=== PATIENT | female | born 1990 | race Caucasian/White ===

== ENCOUNTER → 2017-01-24 10:10 | Emergency (ER) | payer OTHER ==
[~2017-01-24 10:10] MED LIST: Aspirin Low Dose CHEW TAB* 81 MG ONE; Heparin for STEMI(*) 5,000 UNITS/ML 1 ML VIAL IV ONE; NS 0.9% 1000 ML* 1,000 ML IV ONE; Nitroglycerin TAB 0.4 MG* 0.4 MG TAB ONE; Ticagrelor* 90 MG TAB PO ONE; cefTRIAXone(*) 1 GM in NS 0.9% 50 ML* 50 ML IVPB ONE; nitroGLYCERIN DRIP* 0 ML ONE
[2017-01-24 11:09] LABS: Hematocrit 40 % (35-47); Hemoglobin 13.3 g/dl (12.0-16.0); Mean Corpuscular HGB Conc 34 g/dl (31-36); Mean Corpuscular Hemoglobin 29 pg (27-31); Mean Corpuscular Volume 88 fL (80-97); Mean Platelet Volume 8 um3 (7.4-10.4); Red Blood Count 4.53 10^6/ul (4.0-5.4); Red Cell Distribution Width 13 % (10.5-15); White Blood Count 9.8 10^3/ul (3.5-10.8)
[2017-01-24 11:16] LABS: Urine Bacteria Absent (Absent); Urine Bilirubin Negative (Negative); Urine Glucose Negative (Negative); Urine Nitrite Negative (Negative)
[2017-01-24 11:33] LABS: ALT 11 U/L (7-52); AST 13 U/L (13-39); Albumin 4.1 g/dL (3.2-5.2); Alkaline Phosphatase 49 U/L (34-104); Anion Gap 7 mmol/L (2-11); BUN/Creatinine Ratio 15.9 (8-20); Blood Urea Nitrogen 14 mg/dL (6-24); C Reactive Protein 2.44 mg/L (< 5.00); CO2 Carbon Dioxide 27 mmol/L (22-32); Calcium 9.3 mg/dL (8.6-10.3); Chloride 103 mmol/L (101-111); EGFR African American 98.4 (>60); EGFR Non-African American 76.5 (>60); Globulin 2.9 g/dL (2-4); Glucose 93 mg/dL (70-100); Lipase 17 U/L (11.0-82.0); Potassium 3.8 mmol/L (3.5-5.0); Sodium 137 mmol/L (133-145)
--- NOTE | 2017-01-24 11:42 | RAD ---
Indication: 1 month LEFT flank pain. History of LEFT ureteropelvic junction surgery in 2012. Comparison: No relevant prior exams available on the [facility] for comparison. Technique: Renal ultrasound. Report: 13.4 x 6.2 x 5.5 cm RIGHT kidney demonstrates normal cortical echogenicity and absence of conspicuous stones, hydronephrosis, or focal lesions. Negative for perinephric fluid. 10.7 x 5.1 x 3.2 cm LEFT kidney with normal cortical echogenicity is remarkable for moderate pelvicaliectasis. No conspicuous stones or focal renal lesions. Limited images of the urinary bladder documented grossly symmetric ureteral jets. IMPRESSION: Nonspecific moderate pelvic caliectasis of the LEFT kidney in setting of known prior ureteropelvic junction stenosis. The ureteral jets appear grossly symmetric.
[2017-01-24 13:22] VITALS: BP 118/88
[2017-01-24 13:30] LABS: Urine Bacteria Absent (Absent); Urine Bilirubin Negative (Negative); Urine Glucose Negative (Negative); Urine Nitrite Negative (Negative)
--- NOTE | 2017-01-24 17:31 | ED ---
Fili Emerson SooYoung, scribed for João Reich MD on 01/24/17 at 1038 . Abdominal Pain/Female - HPI Summary HPI Summary: A 26 y/o F presents to ED with c/o intermittent pain at L-kidney initial onset 1 month ago. Pert PMHx: L kidney surgery in 2011 performed at [facility]. Pain is described as a "pinch" and radiates around the L side and to L-side of back, and was shooting down to suprapubic abd but that has since resolved. The pain worsened three days ago and was very painful last night. At its worst, pt rated the pain as 4 out of 10. It is currently 2 out of 10 at bedside. She took 3 Ibuprofen approx 1 hour ago. Associated sx: nausea, vaginal discomfort described as achy, urinary frequency. Denies fever, vomiting. She saw her PCP two weeks ago and was negative for UTI. She is scheduled for an U/S tomorrow. Pert PMHx: kidney surgery, UTI, yeast infections. She notes that she's on BC, but her last menstrual cycle lasted three week. Denies PMHx kidney stones. - History of Current Complaint Chief Complaint: EDAbdPain Stated Complaint: LT SIDE/LOWER BACK PAIN Time Seen by Provider: 01/24/17 10:15 Hx Obtained From: Patient, Medical Records Onset/Duration: Lasting Days, Lasting Weeks, Still Present Timing: Intermittent Episode Lasting Severity Initially: Moderate Severity Currently: Mild Pain Intensity: 2 Pain Scale Used: 0-10 Numeric Location: Discrete At: LUQ, Discrete At: LLQ Radiates: Yes Radiates to: Back, Flank, Other - suprapubic abd Character: Other: - "pinch" Associated Signs and Symptoms: Positive: Urinary Symptoms - frequency, Nausea, Other: - pos: vaginal discomfort. 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 Negative: Vomiting Positive: frequency, pain - vaginal discomfort All Other Systems Reviewed And Are Negative: Yes Physical Exam - Summary Physical Exam Summary: VITAL SIGNS: Reviewed. GENERAL: Patient is a well-developed and nourished female who is lying comfortable in the stretcher. Patient is not in any acute respiratory distress. HEAD AND FACE: Normocephalic and atraumatic. EYES: PERRLA, EOMI x 2, No injected conjunctiva. EARS: Hearing grossly intact. Ear canals and tympanic membranes are WNL. MOUTH: Oropharynx within normal limits. NECK: Supple, trachea is midline, no adenopathy, no JVD. CHEST: Symmetric, no tenderness at palpation LUNGS: Clear to auscultation bilaterally. No wheezing or crackles. CVS: RRR, S1 and S2 present, no murmurs or gallops appreciated. ABDOMEN: L CVA tenderness. L flank tenderness. No signs of distention. Positive bowel sounds. No rebound, no guarding, and no masses palpated. No abdominal bruit or pulsations. EXTREMITIES: FROM in all major joints, no edema, no cyanosis or clubbing. NEURO: Alert and oriented x 3. No acute neurological deficits. Speech is normal. SKIN: Dry and warm Triage Information Reviewed: Yes Vital Signs On Initial Exam: Initial Vitals Temp Pulse Resp BP Pulse Ox 98.3 F 85 15 126/88 100 01/24/17 10:13 01/24/17 10:13 01/24/17 10:13 01/24/17 10:13 01/24/17 10:13 Vital Signs Reviewed: Yes Diagnostics - Vital Signs Vital Signs Temp Pulse Resp BP Pulse Ox 01/24/17 10:13 98.3 F 85 15 126/88 100 - Laboratory Lab Results: Lab Results 01/24/17 01/24/17 01/24/17 Range/Units 10:57 10:57 10:57 WBC 9.8 (3.5-10.8) 10^3/ul RBC 4.53 (4.0-5.4) 10^6/ul Hgb 13.3 (12.0-16.0) g/dl Hct 40 (35-47) % MCV 88 (80-97) fL MCH 29 (27-31) pg MCHC 34 (31-36) g/dl RDW 13 (10.5-15) % Plt Count 255 (150-450) 10^3/ul MPV 8 (7.4-10.4) um3 Neut % (Auto) 78.7 (38-83) % Lymph % (Auto) 12.7 L (25-47) % Bulloch % (Auto) 6.3 (1-9) % Eos % (Auto) 1.6 (0-6) % Baso % (Auto) 0.7 (0-2) % Absolute Neuts (auto) 7.7 (1.5-7.7) 10^3/ul Absolute Lymphs (auto) 1.2 (1.0-4.8) 10^3/ul Absolute Monos (auto) 0.6 (0-0.8) 10^3/ul Absolute Eos (auto) 0.2 (0-0.6) 10^3/ul Absolute Basos (auto) 0.1 (0-0.2) 10^3/ul Absolute Nucleated RBC 0 10^3/ul Nucleated RBC % 0 Sodium 137 (133-145) mmol/L Potassium 3.8 (3.5-5.0) mmol/L Chloride 103 (101-111) mmol/L Carbon Dioxide 27 (22-32) mmol/L Anion Gap 7 (2-11) mmol/L BUN 14 (6-24) mg/dL Creatinine 0.88 (0.51-0.95) mg/dL Est GFR ( Amer) 98.4 (>60) Est GFR (Non-Af Amer) 76.5 (>60) BUN/Creatinine Ratio 15.9 (8-20) Glucose 93 (70-100) mg/dL Calcium 9.3 (8.6-10.3) mg/dL Total Bilirubin 0.70 (0.2-1.0) mg/dL AST 13 (13-39) U/L ALT 11 (7-52) U/L Alkaline Phosphatase 49 (34-104) U/L C-Reactive Protein 2.44 (< 5.00) mg/L Total Protein 7.0 (6.4-8.9) g/dL Albumin 4.1 (3.2-5.2) g/dL Globulin 2.9 (2-4) g/dL Albumin/Globulin Ratio 1.4 (1-3) Lipase 17 (11.0-82.0) U/L Beta HCG, Quant < 0.60 mIU/mL Urine Color Sherie Urine Appearance Turbid Urine pH 6.0 (5-9) Ur Specific [place] 1.016 (1.010-1.030) Urine Protein 3+(>=500 mg/dl) H (Negative) Urine Ketones Negative (Negative) Urine Blood 2+ H (Negative) Urine Nitrate Negative (Negative) Urine Bilirubin Negative (Negative) Urine Urobilinogen Negative (Negative) Ur Leukocyte Esterase 3+ H (Negative) Urine WBC (Auto) 3+(>20/hpf) H (Absent) Urine RBC (Auto) 3+(>10/hpf) H (Absent) Ur Squamous Epith Cells Present H (Absent) Urine Bacteria Absent (Absent) Urine Glucose Negative (Negative) 01/24/17 Range/Units 13:15 WBC (3.5-10.8) 10^3/ul RBC (4.0-5.4) 10^6/ul Hgb (12.0-16.0) g/dl Hct (35-47) % MCV (80-97) fL MCH (27-31) pg MCHC (31-36) g/dl RDW (10.5-15) % Plt Count (150-450) 10^3/ul MPV (7.4-10.4) um3 Neut % (Auto) (38-83) % Lymph % (Auto) (25-47) % Bulloch % (Auto) (1-9) % Eos % (Auto) (0-6) % Baso % (Auto) (0-2) % Absolute Neuts (auto) (1.5-7.7) 10^3/ul Absolute Lymphs (auto) (1.0-4.8) 10^3/ul Absolute Monos (auto) (0-0.8) 10^3/ul Absolute Eos (auto) (0-0.6) 10^3/ul Absolute Basos (auto) (0-0.2) 10^3/ul Absolute Nucleated RBC 10^3/ul Nucleated RBC % Sodium (133-145) mmol/L Potassium (3.5-5.0) mmol/L Chloride (101-111) mmol/L Carbon Dioxide (22-32) mmol/L Anion Gap (2-11) mmol/L BUN (6-24) mg/dL Creatinine (0.51-0.95) mg/dL Est GFR ( Amer) (>60) Est GFR (Non-Af Amer) (>60) BUN/Creatinine Ratio (8-20) Glucose (70-100) mg/dL Calcium (8.6-10.3) mg/dL Total Bilirubin (0.2-1.0) mg/dL AST (13-39) U/L ALT (7-52) U/L Alkaline Phosphatase (34-104) U/L C-Reactive Protein (< 5.00) mg/L Total Protein (6.4-8.9) g/dL Albumin (3.2-5.2) g/dL Globulin (2-4) g/dL Albumin/Globulin Ratio (1-3) Lipase (11.0-82.0) U/L Beta HCG, Quant mIU/mL Urine Color Yellow Urine Appearance Turbid Urine pH 6.0 (5-9) Ur Specific [place] 1.006 L (1.010-1.030) Urine Protein 2+(100 mg/dl) H (Negative) Urine Ketones Negative (Negative) Urine Blood 2+ H (Negative) Urine Nitrate Negative (Negative) Urine Bilirubin Negative (Negative) Urine Urobilinogen Negative (Negative) Ur Leukocyte Esterase 3+ H (Negative) Urine WBC (Auto) 3+(>20/hpf) H (Absent) Urine RBC (Auto) 3+(>10/hpf) H (Absent) Ur Squamous Epith Cells Present H (Absent) Urine Bacteria Absent (Absent) Urine Glucose Negative (Negative) Result Diagrams: 01/24/17 10:57 01/24/17 10:57 Lab Statement: Any lab studies that have been ordered have been reviewed, and results considered in the medical decision making process. - Ultrasound No standard instances Ultrasound Interpretation: Positive (See Comments) - IMPRESSION: Nonspecific moderate pelvic caliectasis of the LEFT kidney in setting of known prior ureteropelvic junction stenosis. The ureteral jets appear grossly symmetric. ED physician has reviewed this radiology report and agrees. Ultrasound Interpretation Completed By: Radiologist - EKG 10:58 Cardiac Rate: NL - 72 bpm EKG Rhythm: Sinus Rhythm ST Segment: Normal - no ST elevation Re-Evaluation - Re-Evaluation 1 Re-Evaluation Time: 12:29 Change: Improved Comment: Discussing results with pt. Pt is feeling better. 2 Re-Evaluation Time: 13:54 Change: Improved Comment: Discussing results with pt. Pt is without pain. Will consult with urology for disposition. Abdominal Pain Fem Course/Dx - Course Course Of Treatment: A 26 y/o F presents to ED with c/o intermittent pain at L- kidney initial onset 1 month ago. Pert PMHx: L kidney surgery in 2011 performed at [facility]. Pain is described as a "pinch" and radiates around the L side and to L-side of back, and was shooting down to suprapubic abd but that has since resolved. The pain worsened three days ago and was very painful last night. At its worst, pt rated the pain as 4 out of 10. It is currently 2 out of 10 at bedside. She took 3 Ibuprofen approx 1 hour ago. Associated sx: nausea, vaginal discomfort described as achy, urinary frequency. Denies fever, vomiting. She saw her PCP two weeks ago and was negative for UTI. She is scheduled for an U/S tomorrow. Pert PMHx: kidney surgery, UTI, yeast infections. She notes that she's on BC, but her last menstrual cycle lasted three week. Denies PMHx kidney stones. Test results are without significant abnormalities. UAx2 was contaminated. U/S shows "Nonspecific moderate pelvic caliectasis of the LEFT kidney in setting of known prior ureteropelvic junction stenosis. The ureteral jets appear grossly symmetric. ED physician has reviewed this radiology report and agrees." I discussed the findings with Dr. Leigh, urology, who recommends pt be given Rocephin and D/C home with Bactrim , for possible UTI vs pyelonpehritis. D/C home to f/u with PCP and if needed Dr. Leigh. I discussed this plan with the pt and she agrees. She is to return to ED, if she develops fever, increase in pain, nausea/vomiting, or any other symptoms. Pt is hemodynamically stable, A&Ox3. - Diagnoses Differential Diagnosis: Positive: Ovarian Cyst, Renal Colic, Urinary Tract Infection Provider Diagnoses: Flank pain, rule out UTI vs pyelonephritis - Provider Notifications Discussed Care Of Patient With: Rudy Leigh - urology Time Discussed With Above Provider: 14:02 Instructed by Provider To: Other - Recommends Rocephin, Bactrim follow up with PCP. Discharge - Discharge Plan Condition: Stable Disposition: HOME Prescriptions: Sulfamethox/Trimethoprim DS* [Bactrim DS 800/160 TAB*] 1 tab PO BID #20 tab Patient Education Materials: Sulfamethoxazole/Trimethoprim (By mouth), Flank Pain (ED) Referrals: Gabbie Duran DO [Primary Care Provider] - 2 Days Additional Instructions: Follow up with your primary care provider in 2 days. Please return to the ED if you experience new or worsening symptoms. The documentation as recorded by the Fili grullon SooYoung accurately reflects the service I personally performed and the decisions made by , João Reich MD.
--- NOTE | 2017-01-26 09:04 | PN ---
Progress Note - Progress Note Date of Service: 01/24/17 Note: urine preliminary results show >100,000 of e. coli. diagnosed and treated for UTI with Bactrim. will wait for final susceptibility results.
== END | disposition home or self-care (01) ==
LOC: ED 10:10
DX: R10.32 Left lower quadrant pain (principal); N39.0 Urinary tract infection, site not specified; B96.20 Unspecified Escherichia coli [E. coli] as the cause of diseases classified elsewhere
CPT/HCPCS: 36415; 76775; 80053; 81003; 81015; 83690; 84702; 85025; 86140; 87077; 87086; 87184; 87186; 93005; 96360; 96374; 99282; A9270-GY; J0696; J1644

== ENCOUNTER 2017-06-08 21:43 | Emergency (ER) | payer OTHER ==
[2017-06-08] MEDS ORDERED: Lidocaine 1%* 5 ML VIAL INJ ONE (22:05)
--- NOTE | 2017-06-08 22:10 | ED ---
Skin Complaint - HPI Summary HPI Summary: 27F presents with splinter in left ring finger. She states she was doing laundry when pushed hand against ground and got splinter under her finger. She believes her tetanus is up-to-date. She has full range of motion of hand. She has tried warm soaks and tried removing it with tweezer and it broke into pieces. She denies any fever. She denies any spreading redness. She got the splinter today. She is right-handed. - History of Current Complaint Chief Complaint: EDExtremityLower Time Seen by Provider: 06/08/17 22:03 Stated Complaint: SPLINTER UNDER FINGER NAIL Pain Intensity: 5 - Allergy/Home Medications Allergies/Adverse Reactions: Allergies Allergy/AdvReac Type Severity Reaction Status Date / Time No Known Allergies Allergy Verified 06/08/17 21:50 PMH/Surg Hx/FS Hx/Imm Hx Endocrine/Hematology History: Denies: Hx Anticoagulant Therapy Cardiovascular History: Denies: Hx Hypertension History: Denies: Hx Kidney Stones Sensory History: Denies: Hx Legally Blind Opthamlomology History: Denies: Hx Legally Blind - Surgical History Surgery Procedure, Year, and Place: L kidney surgery, 2012, [facility] Infectious Disease History: No Infectious Disease History: Denies: Traveled Outside the [place] in Last 30 Days - Family History Known Family History: Negative: Diabetes - Social History Alcohol Use: Rare Substance Use Type: Reports: None Smoking Status (MU): Unknown if Ever Smoked Review of Systems Negative: Fever Negative: Chest Pain Negative: Shortness Of Breath Positive: Other - splinter under left ring finger All Other Systems Reviewed And Are Negative: Yes Physical Exam Triage Information Reviewed: Yes Vital Signs On Initial Exam: Initial Vitals Temp Pulse Resp BP Pulse Ox 98.6 F 66 16 120/91 100 06/08/17 21:45 06/08/17 21:45 06/08/17 21:45 06/08/17 21:45 06/08/17 21:45 Vital Signs Reviewed: Yes Appearance: Positive: Well-Appearing Skin: Positive: Warm, Dry, Other - splinter under left ring finger Head/Face: Positive: Normal Head/Face Inspection Eyes: Positive: Normal, Conjunctiva Clear Respiratory/Lung Sounds: Positive: Clear to Auscultation, Breath Sounds Present Cardiovascular: Positive: Normal, RRR Musculoskeletal: Positive: Normal, Strength/ROM Intact - left hand, Other - capillary refill<2 secs Neurological: Positive: Normal Psychiatric: Positive: Normal Procedures - Procedure Summary Procedure Summary: splinter removal performed digital block placed window in nail removed splinter from window created placed neosporin and bandaide on area Diagnostics - Vital Signs Vital Signs Temp Pulse Resp BP Pulse Ox 06/08/17 21:45 98.6 F 66 16 120/91 100 - Laboratory Lab Statement: Any lab studies that have been ordered have been reviewed, and results considered in the medical decision making process. Course/Dx - Course Course Of Treatment: 27F presents with splinter in left ring finger. She states she was doing laundry when pushed hand against ground and got splinter under her finger. She believes her tetanus is up-to-date. She has full range of motion of hand. She has tried warm soaks and tried removing it with tweezer and it broke into pieces. She denies any fever. She denies any spreading redness. She got the splinter today. She is right-handed. On exam has splinter under her left ring finger. Attempted removal by creating window in the nail. was able to remove splinter. will have continue warm soaks and keep nail covered. patient understand and agrees with plan. - Differential Diagnoses - Skin Complaint Differential Diagnoses: Other - foreign body, puncture wound - Diagnoses Provider Diagnoses: splinter left ring finger Discharge - Discharge Plan Condition: Good Disposition: HOME Patient Education Materials: Soft Tissue Foreign Body (ED) Referrals: Gabbie Duran DO [Primary Care Provider] - Additional Instructions: Do warm soaks of area twice a day Keep covered for next couple days Take Tylenol or ibuprofen for pain every 6 hours Return to ED if develop any new or worsening symptoms
[2017-06-08] MEDS ORDERED: Ibuprofen TAB* 600 MG PO ONE (22:35)
[2017-06-08] MEDS ORDERED: Ibuprofen TAB* 600 MG ONE (22:36)
[2017-06-08 22:57] VITALS: BP 123/75
== END 2017-06-08 22:56 | disposition home or self-care (01) ==
LOC: ED 21:43
DX: S60.455A Superficial foreign body of left ring finger, initial encounter (principal); W45.8XXA Other foreign body or object entering through skin, initial encounter; Y92.9 Unspecified place or not applicable
CPT/HCPCS: 99282; A9270-GY

== ENCOUNTER 2019-05-21 16:04 | Emergency (ER) | payer OTHER ==
--- NOTE | 2019-05-21 17:49 | ED ---
Head Injury - HPI Summary HPI Summary: 28 year old female presents with head injury last night. She struck her head on a beam when she jumped up. There was an laceration which she manage by placed ice on it. She states that it bleeding fo 2 hours. The area is currently scabbed over. She states that she has had some dizziness nausea. She admits to light-sensitive. States has had a mild headache. She has a history of migraines. Denies any midline neck. She has neck pain to the right side. She denies loss consciousness. No vomiting. She is not on blood thinners. 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 - History Of Current Complaint Chief Complaint: EDHeadInjury Stated Complaint: HEAD INJURY PER PT Time Seen by Provider: 05/21/19 17:21 Pain Intensity: 2 - Allergies/Home Medications Allergies/Adverse Reactions: Allergies Allergy/AdvReac Type Severity Reaction Status Date / Time No Known Allergies Allergy Verified 05/21/19 16:27 PMH/Surg Hx/FS Hx/Imm Hx Endocrine/Hematology History: Denies: Hx Anticoagulant Therapy Cardiovascular History: Denies: Hx Hypertension Respiratory History: Denies: Hx Asthma History: Denies: Hx Kidney Stones Sensory History: Denies: Hx Legally Blind Opthamlomology History: Denies: Hx Legally Blind - Surgical History Surgery Procedure, Year, and Place: L kidney surgery, 2012, [facility] Infectious Disease History: No Infectious Disease History: Denies: Traveled Outside the [place] in Last 30 Days - Family History Known Family History: Negative: Diabetes - Social History Alcohol Use: Rare Substance Use Type: Reports: None Smoking Status (MU): Never Smoked Tobacco Review of Systems Negative: Fever Negative: Chest Pain Negative: Shortness Of Breath Positive: Nausea. Negative: Vomiting Positive: Headache All Other Systems Reviewed And Are Negative: Yes Physical Exam Triage Information Reviewed: Yes Vital Signs On Initial Exam: Initial Vitals Temp Pulse Resp BP Pulse Ox 98.2 F 85 19 140/88 99 05/21/19 16:23 05/21/19 16:23 05/21/19 16:23 05/21/19 16:23 05/21/19 16:23 Vital Signs Reviewed: Yes Appearance: Positive: Well-Appearing Skin: Positive: Other - scabbed over laceration Head/Face: Positive: Normal Head/Face Inspection, Other - no step off, racoon eyes, rasmussen sign Eyes: Positive: Normal, EOMI, ARPIT, Conjunctiva Clear ENT: Positive: Pharynx normal, TMs normal Neck: Positive: Other: - no midline tenderness, full ROM neck, tenderness on right side of neck Respiratory/Lung Sounds: Positive: Clear to Auscultation, Breath Sounds Present Cardiovascular: Positive: Normal, RRR Musculoskeletal: Positive: Normal Neurological: Positive: Sensory/Motor Intact, Alert, Oriented to Person Place, Time, CN Intact II-III, Finger to Nose Psychiatric: Positive: Normal Procedures - Sedation Patient Received Moderate/Deep Sedation with Procedure: No Diagnostics - Vital Signs Vital Signs Temp Pulse Resp BP Pulse Ox 05/21/19 16:23 98.2 F 85 19 140/88 99 - Laboratory Lab Statement: Any lab studies that have been ordered have been reviewed, and results considered in the medical decision making process. Head Injury Course/Dx Course Of Treatment: 28 year old female presents with head injury last night. She struck her head on a beam when she jumped up. There was an laceration which she manage by placed ice on it. She states that it bleeding fo 2 hours. The area is currently scabbed over. She states that she has had some dizziness nausea. She admits to light-sensitive. States has had a mild headache. She has a history of migraines. Denies any midline neck. She has neck pain to the right side. She denies loss consciousness. No vomiting. She is not on blood thinners. 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 On exam has normal neuro exam. According to [place] rules no need for head imaging. Gave her head injury precautions. toold follow with primary. Laceration is too old to close. Told to keep laceration clean and dry. Patient understands and agrees plan. - Diagnoses Differential Diagnosis/HQI/PQRI: Concussion Without LOC, Contusion, Intracranial Bleed Provider Diagnoses: Head injury Discharge ED - Sign-Out/Discharge Documenting (check all that apply): Patient Departure - Discharge Plan Condition: Good Disposition: HOME Patient Education Materials: Concussion (ED) Referrals: [facility] [Outside] Additional Instructions: Place ice on area as needed Take Tylenol or ibuprofen for headache every 6 hours Modify activities as tolerated establish care with primary to follow up Return to ED if develop vomiting, severe headache, change in behavior, or any new or worsening symptoms - Billing Disposition and Condition Condition: GOOD Disposition: Home - Attestation Statements Provider Attestation: I was available for consultation for this patient. I did not evaluate the patient or participate in any medical decision making or disposition decisions unless I am specifically named in the chart as having consulted on the patient. If I have consulted on the patient, please see my own ED note on the patient encounter. Eve Swartz MD
[2019-05-21 17:58] VITALS: BP 112/67
== END 2019-05-21 17:58 | disposition home or self-care (01) ==
LOC: ED 16:04
DX: S09.90XA Unspecified injury of head, initial encounter (principal); W22.8XXA Striking against or struck by other objects, initial encounter; Y92.9 Unspecified place or not applicable
CPT/HCPCS: 99281

== ENCOUNTER 2019-06-16 18:57 | Emergency (ER) | payer SELFPAY ==
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
[2019-06-16 20:24] LABS: Hematocrit 37 % (35-47); Hemoglobin 12.9 g/dL (12.0-16.0); Mean Corpuscular HGB Conc 35 g/dL (31-36); Mean Corpuscular Hemoglobin 31 pg (27-31); Mean Corpuscular Volume 89 fL (80-97); Mean Platelet Volume 7.4 fL (7.4-10.4); Platelet Count 279 10^3/uL (150-450); Red Blood Count 4.15 10^6 /uL (3.70-4.87); Red Cell Distribution Width 13 % (10-15); White Blood Count 8.5 10^3/uL (3.5-10.8)
[2019-06-16] MEDS ORDERED: Ketorolac *IM* INJ* 60 MG/2 ML VIAL IM ONE (20:38)
--- OUTSIDE RECORDS SUMMARY | 2019-06-16 20:38 | XMS REPORT | Summary of Care ---
:1990 Author Organization [facility] Address [address] [place] [address] Care Team Providers Name Role Phone Sarath Ulrich MD Primary Care Provider Reason for Referral Refer to Department Only (Routine) Status Reason Specialty Diagnoses / Referred By Referred To Procedures Contact Contact Pending Patient Diagnoses Concussion without loss of consciousness, subsequent encounter Юлия Ro Getzin, Andrew, Review Preference CARD FOLDERSimona ODONNELL [address] [place] [address] [place], [place] Phone: [phone] Phone: Reason for Visit Reason Comments Establish Care was seen at [facility] for a concusstion wants to establish with Dr Castellon Encounter Details Date Type Department Care Team Description 05/29/2019 Office Visit [facility] Юлия Ro FNP-C Hypothyroidism, unspecified type (Primary Dx); Practice [address] [facility] Concussion without loss of consciousness, subsequent encounter; [address] [place] [address] Allergic state, sequela; [place] [address] Mild intermittent asthma without complication [phone] Allergies No Known Allergiesdocumented as of this encounter (statuses as of 05/29/2019) Medications Medication Sig Dispensed Refills Start Date End Date Status Drospirenone-Ethin Take by mouth. 0 Active yl Estradiol (GIANVI PO) ALBUTEROL IN Take 2 Puffs by 0 Active inhalation EVERY FOUR HOURS. montelukast Take 10 mg by 0 Active (SINGULAIR) 10 MG mouth DAILY. Oral Tab Loratadine 10 MG Take 10 mg by 0 Active Oral Cap mouth DAILY. levothyroxine Take 200 mcg by 0 Active (SYNTHROID) 200 mouth BEFORE MCG Oral Tab BREAKFAST. On Wednesday and Wednesday levothyroxine Take 175 mcg by 0 Active (SYNTHROID) 175 mouth BEFORE MCG Oral Tab BREAKFAST. Mon-Wed amoxicillin-clavul Take 1 Tab by 0 05/29/19 Discontinued anic acid mouth TWICE 20 (AUGMENTIN 875 MG) DAILY. 875-125 MG Oral Tab Etonogestrel-Ethin Place 1 Device 0 05/29/19 Discontinued yl Estradiol into the vagina 20 (Patient stopped (NUVARING) EVERY 28 DAYS. the medication) 0.12-0.015 MG/24HR Vaginal RING documented as of this encounter (statuses as of 05/29/2019) Active Problems Problem Noted Date Mild intermittent asthma without complication 05/29/2019 Hypothyroidism 05/29/2019 Concussion with no loss of consciousness 05/29/2019 Hyperthyroidism 04/07/2010 documented as of this encounter (statuses as of 05/29/2019) Social History Tobacco Use Types Packs/Day Years Used Date Never Smoker Alcohol Use Drinks/Week oz/Week Comments Yes occasionally Alcohol Habits Answer Date Recorded How often do you have a drink containing alcohol? 2-4 times a month 2019 How many drinks containing alcohol do you have on a Not asked typical day when you are drinking? How often do you have six or more drinks on one Not asked occasion? Sex Assigned at Date Recorded Not on file documented as of this encounter Last Filed Vital Signs Vital Sign Reading Time Taken Comments Blood Pressure 100/60 05/29/2019 8:22 AM EST Pulse 50 05/29/2019 8:22 AM EST Temperature 36.7 05/29/2019 8:22 AM EST C (98 F) Respiratory Rate - - Oxygen Saturation 99% 05/29/2019 8:22 AM EST Inhaled Oxygen Concentration - - Weight 65.8 kg (145 lb) 05/29/2019 8:22 AM EST Height 182.9 cm (6') 05/29/2019 8:22 AM EST Body Mass Index 19.67 05/29/2019 8:22 AM EST documented in this encounter Patient Instructions Patient InstructionsЮлия Ro FNP-C - 05/29/2019 8:00 AM ESTPatient Education Concussion Discharge Instructions, Adult About this topic Concussion is a brain injury caused by a hit to the head. Anything that makes the brain bounce around and against the skull can cause a concussion. This might include falling, sports injuries, car crashes, or a hit to the head. Some signs of a concussion may show up right away or they could show up several hours, days, or evenweeks later. You may have been knocked out at the time of the injury. Other signs may include: Headache Upset stomach or throwing up Feeling tired or have trouble sleeping Trouble walking or talking Problems with feeling confused or not able to remember what happened Trouble paying attention Feeling cranky or out of sorts or other mood or behavior problems Changes in vision Feeling bothered by noise or light Signs may disappear quickly or may linger for several days, weeks, or even months. What care is needed at home? Ask your doctor what you need to do when you go home. Make sure you ask questions if you do notunderstand what you need to do. Healing may take days to weeks. For the first 12 to 24 hours after you are home, have an adult watch you. They should call the doctor if you have any problems. It is important to make sure you are breathing normally, not throwing up, and not moaning while you sleep. Make sure family and friends know of your injury and how to help. You do not need to stay in bed. Alternate rest with light activity like walking. Rest your brain. Stay away from doing things that need a lot of thought or focus. Stay away from TV, computers, and video games until your doctor says OK. Stay in a quiet, calm environment. Avoid bright lights. Staying in a dark room may help. Avoid loud or constant noise. Be as comfortable as possible. Place an ice pack or a bag of frozen peas wrapped in a towel over the painful part. Never put ice straight on the skin. Do not leave the ice on more than 10 to 15 minutes at a time. Take your pain-relieving drugs if your head hurts. Do not drink beer, wine, and mixed drinks (alcohol) until you fully recover. Do not use recreational drugs like cocaine, methamphetamines, or heroin. What follow-up care is needed? Your doctor may ask you to make visits to the office to check on your progress. Be sure to keepyour visits. Your doctor may do tests, such as a CT scan, MRI, or x-rays. These tests will check to see if other structures inside your head were harmed. Your doctor may send you to a rehab expert. They may be able to help you to get your brain function back and help you to recover faster. What drugs may be needed? The doctor may order drugs to: Help with pain Help with dizziness Treat or prevent seizures Will physical activity be limited? Physical activity may be limited for some time. Doing things that require thinking or memory might also be limited. Check with your doctor about when you can go back to your normal activities. These may be limited as long as you have the signs of a concussion. You should be able to do light activities like reading and walking. Slowly add to your activities. Avoid tiring activities, heavy exercise, and swimming. Ask your doctor when it is okay for you to drive. When you go back to work, talk to your employer about your job. You may need some limits on what you do. You may need to have someone check your work every now and then. Make sure teachers know ofyour problem if you are in school. Avoid doing things that may put you at risk of another head injury. Ask your doctor when it will be safe for you to return to playing sports. What problems could happen? Bleeding or swelling in the brain Damage to the brain which may lead to changes in mental, physical, and emotional behavior Seizures Low mood Hearing, smelling, or eye problems Memory loss Dizziness Headaches If you get a new concussion while not yet fully recovered from the first one, you might have brain swelling which could be dangerous. Multiple concussions can lead to permanent brain damage and even . What can be done to prevent this health problem? Do not drive when you are taking drugs for pain or that cause you to be sleepy. Do not drink alcohol and drive. Do not drive when you are tired. Always wear a seatbelt when you drive or ride in a car. Wear proper protective equipment when you play sports. Wear a helmet when riding a motorcycle, bicycle, skateboard, roller skates , or when skiing or snowboarding or doing other similar activity. Stay away from unsafe activities that may cause falls. Wear hard hats and protective gear if you work in construction or other dangerous jobs or if you work on ladders or in high places. When do I need to call the doctor? Problems with your brain like: More confusion, drowsiness, or any change in ability to think clearly Not being able to remember things Very sleepy (more than expected) or hard to wake up Behavior changes like angry outbursts or thoughts of hurting yourself or others Headache gets worse or feels different Problems with your eyes, ears, or mouth like: Trouble speaking or slurred speech Blurry eyesight, seeing double, or other problems with your eyesight Bleeding or clear liquid drainage from your ears or nose Problems with how you move or feel like: Upset stomach and throwing up that won't go away Dizziness or fainting Staggering or trouble walking Lack of strength or numbness of an arm, leg, or any part of your body Stiff neck Seizure Losing control of your bladder or bowels Teach Back: Helping You Understand The Teach Back Method helps you understand the information we are giving you. The idea is simple. After talking with the staff, tell them in your own words what you were just told. This helps to make sure the staff has covered each thing clearly. It also helps to explain things that may have been a bit confusing. Before going home, make sure you are able to do these: I can tell you about my condition. I can tell you why it is important to protect my brain from another concussion while it is healing. I can tell you what I will do if I have problems remembering things. Where can I learn more? [employer] Of [place] [employer] https://familydoctor.org/condition/concussion/ Centers for Disease Control and Prevention https://www.cdc.gov/headsup/index.html NHS Choices https://www.nhs.uk/conditions/concussion/ Last Reviewed Date 2017-05-21 Consumer Information Use and Disclaimer This information is not specific medical advice and does not replace information you receive from your health care provider. This is only a brief summary of general information. It does NOT include allinformation about conditions, illnesses, injuries, tests, procedures, treatments, therapies, discharge instructions or life-style choices that may apply to you. You must talk with your health care provider for complete information about your health and treatment options. This information should not beused to decide whether or not to accept your health care provider?s advice, instructions or recommendations. Only your health care provider has the knowledge and training to provide advice that is right for you. Copyright Copyright 2019 [employer] and its affiliates and/or licensors. All rights reserved. documented in this encounter Progress Notes Юлия Ro FNP-C - 05/29/2019 8:00 AM EST PATIENT: Sheryl Bullard : 1990 DATE OF SERVICE: 05/29/2019 CHIEF COMPLAINT: Chief Complaint Patient presents with ? Establish Care was seen at [facility] for a concusstion wants to establish with Dr Castellon Subjective HISTORY OF PRESENT ILLNESS: Sheryl Bullard is a 28-y.o. female. followup vist after being seen in [facility] ED 05/21/2019 Hit her head in basement 05/20/19-Jumped upward into a big beam-hit her head so hard her housemate heard it upstairs Laceration on top of her head Denies Vomiting and LOC at the time of injury, cleaded the wound and went to bed the next morning woke up with slurred speech,dizziness and nausea so went to ED - no imaging or labwork wound not repaired d/t delay- too long to close ,dx with concussion At the present time: -Feels fatiguedhard time staying awake -Frequent headaches- top of her head-frontal -Nausea- no vomiting -Dizziness- only when bending forward -Can't take time off of 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 Asthma ? Head injury ? Hyperthyroidism Family History Problem Relation Age of Onset ? Thyroid Mother ? Alcohol/Drug Mother ? Allergies Mother ? Arthritis Mother ? Asthma Mother ? Heart Mother ? Stroke Mother ? Alcohol/Drug Father Current Outpatient Medications Medication Sig ? Drospirenone-Ethinyl Estradiol (GIANVI PO) Take by mouth. No current facility-administered medications for this visit. No Known Allergies Social History Socioeconomic History ? Marital status: Single Spouse name: Not on file ? Number of children: Not on file ? Years of education: Not on file ? Highest education level: Not on file Occupational History ? Not on file Social Needs ? Financial resource strain: Not on file ? Food insecurity Worry: Not on file Inability: Not on file ? Transportation needs Medical: Not on file Non-medical: Not on file Tobacco Use ? Smoking status: Never Smoker Substance and Sexual Activity ? Alcohol use: Yes Frequency: 2-4 times a month Comment: occasionally ? Drug use: No ? Sexual activity: Yes Partners: Male control/protection: Pill Lifestyle ? Physical activity Days per week: Not on file Minutes per session: Not on file ? Stress: Not on file Relationships ? Social connections Talks on phone: Not on file Gets together: Not on file Attends yazidi service: Not on file Active member of club or organization: Not on file Attends meetings of clubs or organizations: Not on file Relationship status: Not on file ? Intimate partner violence Fear of current or ex partner: Not on file Emotionally abused: Not on file Physically abused: Not on file Forced sexual activity: Not on file Other Topics Concern ? 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 Over the last 2 weeks, have you been feeling down, depressed, anxious, or hopeless?: 0 Over the past 2 weeks, have you felt little interest or pleasure in doing things ?: 0 REVIEW OF SYSTEMS: Review of Systems Constitutional: Positive for malaise/fatigue. HENT: Negative for congestion and sore throat. Eyes: Negative for blurred vision, double vision and pain. Respiratory: Negative for cough and shortness of breath. Cardiovascular: Negative for chest pain and palpitations. Gastrointestinal: Positive for nausea. Negative for abdominal pain, diarrhea and vomiting. Genitourinary: Negative for dysuria. Musculoskeletal: Positive for neck pain. Negative for myalgias. Skin: Negative for rash. Neurological: Positive for dizziness and headaches. Negative for speech change and weakness. Psychiatric/Behavioral: Negative for depression, memory loss and suicidal ideas. The patient is not nervous/anxious and does not have insomnia. Difficulty finding words sometimes Objective PHYSICAL EXAM: VITALS: BP 100/60 (BP Location: Left arm, Patient Position: Sitting) | Pulse 50 | Temp 98 F (36.7 C) | Ht 6' (1.829 m) | Wt 145 lb (65.8 kg) | SpO2 99% | BMI 19.67 kg/m Body mass index is 19.67 kg/m. Physical Exam HENT: Head: Normocephalic. Comments: Top of head with healing laceration -no edema or erythema surrounding wound Right Ear: Tympanic membrane normal. Left Ear: Tympanic membrane normal. Nose: Nose normal. Mouth/Throat: Mouth: Mucous membranes are moist. Eyes: Extraocular Movements: Extraocular movements intact. Conjunctiva/sclera: Conjunctivae normal. Pupils: Pupils are equal, round, and reactive to light. Neck: Musculoskeletal: Normal range of motion. Comments: No cspine tenderness Cardiovascular: Rate and Rhythm: Normal rate. Heart sounds: Normal heart sounds. No murmur. Pulmonary: Effort: Pulmonary effort is normal. Breath sounds: Normal breath sounds. Abdominal: General: Bowel sounds are normal. There is no distension. Palpations: There is no mass. Tenderness: There is no abdominal tenderness. Musculoskeletal: Normal range of motion. General: No swelling. Skin: General: Skin is warm. Capillary Refill: Capillary refill takes less than 2 seconds. Findings: No rash. Neurological: Mental Status: She is alert and oriented to person, place, and time. Cranial Nerves: No cranial nerve deficit. Sensory: No sensory deficit. Motor: No weakness. Coordination: Coordination normal. Gait: Gait normal. Deep Tendon Reflexes: Reflexes normal. Psychiatric: Mood and Affect: Mood normal. Behavior: Behavior normal. Thought Content: Thought content normal. Judgment: Judgment normal. ASSESSMENT / IMPRESSION: ICD-9-CM ICD-10-CM 1. Hypothyroidism, unspecified type 244.9 E03.9 THYROID STIMULATING HORMONE 2. Concussion without loss of consciousness, subsequent encounter V58.89 S06.0X0D REFER TO SPORTS MEDICINE 850.0 3. Allergic state, sequela 909.9 T78.40XS 4. Mild intermittent asthma without complication 493.90 J45.20 Plan Discussed that she is having expected s/s of concussion- no indication for imaging discussed importance of rest - she will try to take some time off of work or get some extra assistance Continue to use excedrin for headache relief as needed Important to stay well hydrated and eat frequently to avoid hypoglycemia Discussed avoiding bright light, computer screens and vigorous activity to help symptoms subside Will refer to Sports medicine- Dr Evans for further evaluation of concussion Will send for TSH to monitor thyroid medication Discussed followup as needed Author: ORTIZ Bhat 05/29/2019 10:50 documented in this encounter Plan of Treatment Date Type Specialty Care Team Description 10/09/2019 Office Visit Family Practice Madeline Jones MD [address] [place] [address] [phone] Name Type Priority Associated Diagnoses Order Schedule THYROID STIMULATING Lab Routine Hypothyroidism, Expected: 05/29/2019 HORMONE Unspecified Type (Approximate), Expires: 05/29/2020 Name Type Priority Associated Diagnoses Order Schedule REFER TO SPORTS Referral Routine Concussion Without Loss Expected: 2019, MEDICINE Of Consciousness, Expires: 05/29/2020 Subsequent Encounter Health Maintenance Due Date Last Done Comments DTaP/Tdap/Td Vaccines (1 - Tdap) 06/06/1999 PAP SMEAR 2009 DEPRESSION SCREENING 05/29/2020 05/29/2019 HIV SCREENING 05/29/2020 Postponed from 06/06/2003 (Patient refused) INFLUENZA VACCINE (#1) 2020 Postponed from 12/04/2018 (Patient refused) PNEUMOCOCCAL 0-64 YRS (1 of 1 - 05/29/2020 Postponed from 1994 PPSV23) (Patient refused) HEPATITIS A IMMUNIZATION SERIES Aged Out No longer eligible based on patient's age to complete this topic HPV IMMUNIZATION SERIES Aged Out No longer eligible based on patient's age to complete this topic MENINGOCOCCAL VACCINE IMM Aged Out No longer eligible based on patient's age to complete this topic documented as of this encounter Results Not on filedocumented in this encounter Visit Diagnoses Diagnosis Concussion without loss of consciousness, subsequent encounter Hypothyroidism, unspecified type Allergic state, sequela Mild intermittent asthma without complication Unspecified asthma documented in this encounter Insurance Payer Benefit Plan / Subscriber ID Effective Dates Phone Address Type Group [facility] [id number] 2018-Present [place]enny (Home) [place], [place] [phone] (Work) documented as of this encounter"
[2019-06-16 20:41] LABS: ALT 11 U/L (7-52); AST 15 U/L (13-39); Albumin 4.3 g/dL (3.2-5.2); Albumin/Globulin Ratio 1.5 (1-3); Alkaline Phosphatase 43 U/L (34-104); Anion Gap 8 mmol/L (2-11); BUN/Creatinine Ratio 10.6 (8-20); Blood Urea Nitrogen 10 mg/dL (6-24); CO2 Carbon Dioxide 26 mmol/L (22-32); Calcium 9.4 mg/dL (8.6-10.3); Chloride 105 mmol/L (101-111); EGFR Non-African American 69.5 (>60); Globulin 2.8 g/dL (2-4); Glucose 105 mg/dL (70-100); Potassium 3.4 mmol/L (3.5-5.0); Sodium 139 mmol/L (135-145); Total Protein 7.1 g/dL (6.4-8.9)
[2019-06-16 20:46] LABS: Alcohol < 10 mg/dL (<10)
[2019-06-16 22:14] VITALS: BP 138/85
== END 2019-06-16 22:45 | disposition home or self-care (01) ==
LOC: ED 18:57
DX: S06.0X9A Concussion with loss of consciousness of unspecified duration, initial encounter (principal); S16.1XXA Strain of muscle, fascia and tendon at neck level, initial encounter; V43.52XA Car driver injured in collision with other type car in traffic accident, initial encounter; Y92.410 Unspecified street and highway as the place of occurrence of the external cause
CPT/HCPCS: 36415; 70450; 72125; 80053; 80320; 85027; 86850; 86900; 86901; 96372; 99283; G0480; J1885